=== PATIENT | male | born 1950 | race Hispanic/Latino ===

== ENCOUNTER 2017-09-27 18:41 | Emergency (ER) | payer SELFPAY ==
--- NOTE | 2017-09-27 20:40 | EDPHYS ---
Physician Documentation [facility] Name: Sanchez Estevez Age: 67 yrs Sex: Male : 1950 Arrival Date: 09/27/2017 Time: 18:45 Bed 4 Private MD: None, None ED Physician Yonas Canas HPI: 09/27 20:36 This 67 yrs old Male presents to ER via Ambulatory with complaints of Fall jr8 Injury - SHOULDER. 20:36 Details of fall: The patient fell from an upright position, while standing. Onset: The jr8 symptoms/episode began/occurred acutely, today. Associated injuries: The patient sustained right shoulder, decreased range of motion, painful injury. Severity of symptoms: At their worst the symptoms were moderate, in the emergency department the symptoms are unchanged. The patient has not experienced similar symptoms in the past. The patient has not recently seen a physician. Patient stated that he was running at work to tell someone something and tripped on plastic wrap causing him to fall onto right shoulder. Pain since incident with decreased range of motion . Historical: - Allergies: 18:50 No Known Allergies; aj1 - Home Meds: 18:50 None [Active]; aj1 - PMHx: 18:50 None; aj1 - PSHx: 18:50 None; aj1 - Immunization history:: Adult Immunizations up to date. - Social history:: Smoking status: Patient uses tobacco products, 3-4 cigarettes per day. - Immunization history: Last tetanus immunization: unknown. - Ebola Screening: : Patient denies travel to an Ebola-affected area in the 21 days before illness onset. ROS: 20:36 Eyes: Negative for injury, pain, redness, and discharge, ENT: Negative for injury, jr8 pain, and discharge, Neck: Negative for injury, pain, and swelling, Cardiovascular: Negative for chest pain, palpitations, and edema, Respiratory: Negative for shortness of breath, cough, wheezing, and pleuritic chest pain, Abdomen/GI: Negative for abdominal pain, nausea, vomiting, diarrhea, and constipation, Back: Negative for injury and pain, Skin: Negative for injury, rash, and discoloration, Neuro: Negative for headache, weakness, numbness, tingling, and seizure. 20:36 MS/extremity: Positive for decreased range of motion, pain, tenderness, of the right shoulder. Exam: 20:36 Head/Face: Normocephalic, atraumatic. Eyes: Pupils equal round and reactive to light, jr8 extra-ocular motions intact. Lids and lashes normal. Conjunctiva and sclera are non-icteric and not injected. Cornea within normal limits. Periorbital areas with no swelling, redness, or edema. ENT: Nares patent. No nasal discharge, no septal abnormalities noted. Tympanic membranes are normal and external auditory canals are clear. Oropharynx with no redness, swelling, or masses, exudates, or evidence of obstruction, uvula midline. Mucous membranes moist. Neck: Trachea midline, no thyromegaly or masses palpated, and no cervical lymphadenopathy. Supple, full range of motion without nuchal rigidity, or vertebral point tenderness. No Meningismus. Chest/axilla: Normal chest wall appearance and motion. Nontender with no deformity. No lesions are appreciated. Cardiovascular: Regular rate and rhythm with a normal S1 and S2. No gallops, murmurs, or rubs. Normal PMI, no JVD. No pulse deficits. Respiratory: Lungs have equal breath sounds bilaterally, clear to auscultation and percussion. No rales, rhonchi or wheezes noted. No increased work of breathing, no retractions or nasal flaring. Abdomen/GI: Soft, non-tender, with normal bowel sounds. No distension or tympany. No guarding or rebound. No evidence of tenderness throughout. Back: No spinal tenderness. No costovertebral tenderness. Full range of motion. Skin: Warm, dry with normal turgor. Normal color with no rashes, no lesions, and no evidence of cellulitis. Neuro: Awake and alert, GCS 15, oriented to person, place, time, and situation. Cranial nerves II-XII grossly intact. Motor strength 5/5 in all extremities. Sensory grossly intact. Cerebellar exam normal. Normal gait. 20:36 Musculoskeletal/extremity: Extremities: grossly normal except: noted in the right shoulder: decreased ROM, pain, tenderness, ROM: full active range of motion, limited passive range of motion, limited active range of motion due to pain, limited passive range of motion due to pain, Circulation is intact in all extremities. Sensation intact. Vital Signs: 18:50 BP 152 / 103; Pulse 96; Resp 18; Temp 97.8; Pulse Ox 97% on R/A; Weight 73.03 kg; aj1 Height 5 ft. 8 in. (172.72 cm); Pain 9/10; 20:35 BP 131 / 87; Pulse 56; Resp 16; Pulse Ox 96% on R/A; ao 18:50 Body Mass Index 24.48 (73.03 kg, 172.72 cm) aj1 [place] Coma Score: 19:34 Eye Response: spontaneous(4). Verbal Response: oriented(5). Motor Response: obeys ao commands(6). Total: 15. Trauma Score (Adult): 19:34 Eye Response: spontaneous(1); Verbal Response: oriented(1); Motor Response: obeys ao commands(2); Systolic BP: > 89 mm Hg(4); Respiratory Rate: 10 to 29 per min(4); Rosa Score: 15; Trauma Score: 12 Procedures: 20:36 Splinting: Splint applied to right shoulder using sling, applied by tech. Examined by jr8 me, post splint application: neurovascular intact, 2+ distal pulses palpable, brisk capillary refill noted, Patient tolerated well. MDM: 19:15 Patient medically screened. jr8 20:36 Data reviewed: vital signs, nurses notes, radiologic studies, plain films, and as a jr8 result, I will discharge patient. Data interpreted: Pulse oximetry: on room air is 96 %. Interpretation: normal. Counseling: I had a detailed discussion with the patient and/or guardian regarding: the historical points, exam findings, and any diagnostic results supporting the discharge/admit diagnosis, radiology results, the need for outpatient follow up, a orthopedic surgeon, to return to the emergency department if symptoms worsen or persist or if there are any questions or concerns that arise at home. 09/27 19:15 Order name: XRAY Shoulder RIGHT 2 view; Complete Time: 21:10 jr8 Administered Medications: No medications were administered Disposition: 09/27/17 20:39 Discharged to Home. Impression: Contusion of right shoulder. - Condition is Stable. - Discharge Instructions: Shoulder Pain. - Prescriptions for Mobic 7.5 mg Oral Tablet - take 1 tablet by ORAL route once daily take with food; 20 tablet. - Medication Reconciliation Form, Thank You Letter, Antibiotic Education, Prescription Opioid Use, Work release form form. - Follow up: Brandon Angeles MD; When: 2 - 3 days; Reason: Recheck today's complaints, Continuance of care, Re-evaluation by your physician. - Problem is new. - Symptoms have improved. Addendum: 09/29/2017 14:51 Co-signature as Attending Physician, Yonas Canas MD I agree with the assessment and w a plan of care. Signatures: Dispatcher [employer] EDMaylin Zavala RN RN aj1 Lucas Tyson PA PA jr8 Mariusz Jean RN RN ao [place], William, MD MD ia Robel Salgado RN RN mg2 Corrections: (The following items were deleted from the chart) 09/27 21:14 20:39 09/27/2017 20:39 Discharged to Home. Impression: Contusion of right shoulder. mg2 Condition is Stable. Forms are Medication Reconciliation Form, Thank You Letter, Antibiotic Education, Prescription Opioid Use. Follow up: Brandon Angeles; When: 2 - 3 days; Reason: Recheck today's complaints, Continuance of care, Re-evaluation by your physician. Problem is new. Symptoms have improved. jr8
--- NOTE | 2017-09-27 20:40 | ER ---
Nurse's Notes [facility] Name: Sanchez Estevez Age: 67 yrs Sex: Male : 1950 Arrival Date: 09/27/2017 Time: 18:45 Bed 4 Private MD: None, None Diagnosis: Contusion of right shoulder Presentation: 09/27 18:46 Presenting complaint: Patient states: He tripped over some plastic that he was using to aj1 wrap containers and landed on his right shoulder. Reports right shoulder pain, limited ROM to right shoulder. Care prior to arrival: None. Mechanism of Injury: fall. Trauma event details: Injury occurred in the [facility]. 18:46 Acuity: THIAGO 4 aj1 18:46 Method Of Arrival: Ambulatory aj1 18:49 Transition of care: patient was not received from another setting of care. Onset of aj1 symptoms was September 27, 2017. Risk Assessment: Do you want to hurt yourself or someone else? Patient reports no desire to harm self or others. Initial Sepsis Screen: Does the patient meet any 2 criteria? No. Patient's initial sepsis screen is negative. Does the patient have a suspected source of infection? No. Patient's initial sepsis screen is negative. Triage Assessment: 18:50 General: Appears in no apparent distress. uncomfortable, Behavior is calm, cooperative, aj1 appropriate for age. Pain: Complains of pain in anterior aspect of right shoulder and posterior aspect of right shoulder Pain does not radiate. Pain currently is 9 out of 10 on a pain scale. Quality of pain is described as burning, Pain began 2-3 days ago. Musculoskeletal: Range of motion: limited in right shoulder. Trauma Activation: Not Applicable Physician: ED Physician; Name: ; Notified At: ; Arrived At: Physician: General Surgeon; Name: ; Notified At: ; Arrived At: Physician: Radiology; Name: ; Notified At: ; Arrived At: Physician: Respiratory; Name: ; Notified At: ; Arrived At: Physician: Lab; Name: ; Notified At: ; Arrived At: Historical: - Allergies: 18:50 No Known Allergies; aj1 - Home Meds: 18:50 None [Active]; aj1 - PMHx: 18:50 None; aj1 - PSHx: 18:50 None; aj1 - Immunization history:: Adult Immunizations up to date. - Social history:: Smoking status: Patient uses tobacco products, 3-4 cigarettes per day. - Immunization history: Last tetanus immunization: unknown. - Ebola Screening: : Patient denies travel to an Ebola-affected area in the 21 days before illness onset. Screenin:34 Abuse screen: Denies threats or abuse. Denies injuries from another. Nutritional ao screening: No deficits noted. Tuberculosis screening: No symptoms or risk factors identified. Fall Risk Fall in past 12 months (25 points). Primary Survey: 19:35 A: Airway: patent. Breathing/Chest: Respiratory pattern: regular, Respiratory effort: ao spontaneous, Breath sounds: clear, Chest inspection: symmetrical rise and fall of the chest. Circulation: Cardiac rhythm: sinus rhythm Heart tones present. Pulses: palpable right radial artery and left radial artery. Skin color: pink, Skin temperature: warm. Disability Alert. 19:36 Reassessment Breathing/Chest. ao Assessment: 19:32 General: Appears in no apparent distress. uncomfortable, Behavior is calm, cooperative, ao appropriate for age. Pain: Complains of pain in right shoulder and right arm. Neuro: Level of Consciousness is awake, alert, obeys commands, Oriented to person, place, time, situation, Appropriate for age Moves all extremities. Speech is normal, Cardiovascular: Capillary refill < 3 seconds Patient's skin is warm and dry. Respiratory: Airway is patent Respiratory effort is even, unlabored, Respiratory pattern is regular, symmetrical, Breath sounds are clear bilaterally. GI: Abdomen is non-distended. : No signs and/or symptoms were reported regarding the genitourinary system. EENT: No signs and/or symptoms were reported regarding the EENT system. Derm: Skin is intact, Skin is pink, warm \T\ dry. normal, Skin temperature is warm. Musculoskeletal: Circulation, motion, and sensation intact. Range of motion:. 20:35 Reassessment: Patient appears in no apparent distress at this time. Patient and/or ao family updated on plan of care and expected duration. Pain level reassessed. Patient is alert, oriented x 3, equal unlabored respirations, skin warm/dry/pink. NATALIIA Zavala at bedside. Vital Signs: 18:50 BP 152 / 103; Pulse 96; Resp 18; Temp 97.8; Pulse Ox 97% on R/A; Weight 73.03 kg; aj1 Height 5 ft. 8 in. (172.72 cm); Pain 9/10; 20:35 BP 131 / 87; Pulse 56; Resp 16; Pulse Ox 96% on R/A; ao 18:50 Body Mass Index 24.48 (73.03 kg, 172.72 cm) aj1 [place] Coma Score: 19:34 Eye Response: spontaneous(4). Verbal Response: oriented(5). Motor Response: obeys ao commands(6). Total: 15. Trauma Score (Adult): 19:34 Eye Response: spontaneous(1); Verbal Response: oriented(1); Motor Response: obeys ao commands(2); Systolic BP: > 89 mm Hg(4); Respiratory Rate: 10 to 29 per min(4); Rosa Score: 15; Trauma Score: 12 ED Course: 18:45 Patient arrived in ED. sb2 18:46 None, None is Private Physician. sb2 18:49 Triage completed. aj1 18:50 Arm band placed on Patient placed in waiting room, Patient notified of wait time. aj1 19:15 Lucas Tyson PA is PHCP. jr8 19:15 Yonas Canas MD is Attending Physician. jr8 19:31 Mariusz Jean, FRANCISCO is Primary Nurse. ao 19:35 Patient has correct armband on for positive identification. Pulse ox on. NIBP on. ao 19:36 Patient maintains SpO2 saturation greater than 95% on room air. Thermoregulation: warm ao blanket given to patient. 20:09 XRAY Shoulder RIGHT 2 view In Process Unspecified. EDMS 20:11 X-ray completed. Portable x-ray completed in exam room. Patient tolerated procedure ml well. 20:39 Brandon Angeles MD is Referral Physician. jr8 21:12 No provider procedures requiring assistance completed. ao 21:13 Patient did not have IV access during this emergency room visit. mg2 21:15 Patient did not have IV access during this emergency room visit. ao Administered Medications: No medications were administered Intake: 21:13 PO: 0ml; Total: 0ml. ao 21:13 PO: 0ml; Total: 0ml. ao Output: 21:13 Urine: 0ml; Total: 0ml. ao 21:13 Urine: 0ml; Total: 0ml. ao Outcome: 20:39 Discharge ordered by MD. valadez 21:13 Condition: stable mg2 21:13 Discharge instructions given to patient, family, Instructed on discharge instructions, follow up and referral plans. medication usage, Demonstrated understanding of instructions, follow-up care, medications, Prescriptions given X 1. 21:13 Discharged to home ambulatory. ao 21:13 Patient's length of stay was not longer than 2 hours. ao 21:14 Patient left the ED. mg2 Signatures: Dispatcher [employer] EDMaylin Zavala, RN RN Vonda Puga Josh, PA PA jr8 Ortiz, Alex, RN RN Nicolasa Boogie sb2 Robel Salgado, RN RN mg2 Corrections: (The following items were deleted from the chart) 09/28 04:29 04:28 No provider procedures requiring assistance completed. ao ao 04:31 09/27 21:40 PO 0, Urine 0, ao ao
--- NOTE | 2017-09-27 21:07 | RAD REPORT ---
EXAM DESCRIPTION: Shoulder Right 2 View - 09/27/2017 8:09 pm CLINICAL HISTORY: Fall, decreased range of motion COMPARISON: None. TECHNIQUE: Internal and external rotation views of the right shoulder were obtained. FINDINGS: No fracture or dislocation of the proximal humerus. Acromial humeral joint space is normal . Degenerative changes are present at the AC joint. The relative a width of the AC joint is not outsi de of normal range. Left shoulder is not available for comparison. There was no prior imaging availab le. Clavicle is not fractured. Ribs and parenchyma of the upper right chest without acute finding. IMPRESSION: AC joint degenerative change present. An acute finding is not suspected.
== END 2017-09-27 21:14 | disposition home or self-care (01) ==
LOC: ER 18:41
DX: S40.011A Contusion of right shoulder, initial encounter (principal); F17.210 Nicotine dependence, cigarettes, uncomplicated; W01.0XXA Fall on same level from slipping, tripping and stumbling without subsequent striking against object, initial encounter; Y93.89 Activity, other specified; Y92.89 Other specified places as the place of occurrence of the external cause; Y99.0 Civilian activity done for income or pay
CPT/HCPCS: 99284